=== PATIENT | male | born 1980 | race Caucasian/White ===

== ENCOUNTER 2017-06-19 05:25 | Inpatient (IN) | payer OTHER ==
--- NOTE | 2017-06-18 21:05 | PREOPHP ---
DATE OF ADMISSION: 06/19/2017 REASON FOR CONSULTATION: Consultation requested by Dr. Ti Mcmillan for urgent medical evaluation and clearance of a 36-year-old gentleman about to undergo surgery. Thank you, Dr. Mcmillan, for allowing us to participate in the care of this patient. HISTORY OF PRESENT ILLNESS: Greyson Goodman, a 36-year-old gentleman, injured his back approxima tely 6 weeks ago with a progressive history of worsening and radicular signs. Eventually he was samir gnosed with a large right paracentral herniation at L4-L5 and moderate radiculopathy of the S1 nerve with acute denervation on the nerve study, and is currently being admitted for urgent lumbar spine decompression. PAST MEDICAL HISTORY: In terms of his past medical history, his only surgical history was tonsil an d adenoid surgery. He has had no other major surgeries. No other minor surgeries. Also has not sunshine d any medical hospitalizations and has not broken any bones. ALLERGIES: THE PATIENT IS NOT ALLERGIC TO ANY MEDICATIONS. MEDICATIONS: He is only taking ibuprofen, which he stopped currently. GENERAL HEALTH: Is described as being good. SOCIAL HISTORY: The patient is , has 2 children. He does not smoke. Alcohol socially. Leblanc s drink coffee. Has no difficulty sleeping at night and is employed. FAMILY HISTORY: Mother at age 50 of cancer. Father is 64, has hypertension. Three siblings a re in good health. He knows of no family history of diabetes, heart or stroke. There was cancer an d hypertension. REVIEW OF SYSTEMS HEENT: Denies any significant headaches. CARDIORESPIRATORY: Denies any chest pain or shortness of breath. GASTROINTESTINAL: No melena or hematemesis. GENITOURINARY: No urgency, frequency. MUSCULOSKELETAL: Positive for back pain, severe, radiating down his right lower extremity. NEUROPSYCHIATRIC: Unremarkable. GENERAL HEALTH: As above. PHYSICAL EXAMINATION: VITAL SIGNS: The patient's blood pressure was 120/80, pulse was 80 and regular, respirations were 1 8, temperature 97.8, height 5 feet 6 inches, weight 180 pounds. GENERAL: The patient was noted to be a well-developed, well-nourished male, alert and cooperative, in no apparent acute distress, oriented to time, place, and person. HEAD, EARS, EYES, NOSE AND THROAT: Head was atraumatic. Eyes: Pupils were equal, reactive to ligh t and accommodation. Fundi were benign. Tympanic membranes were unremarkable. Nose was negative. Mouth was unremarkable. Fair oral hygiene was present. NECK: Supple without any rigidity. Trachea was midline. Thyroid was within normal limits. Neck v eins were flat. Carotid pulses were equal. No bruits were heard. BACK: Revealed spasm and tenderness in the lower back, otherwise unremarkable. CHEST: Symmetrical. BREASTS AND AXILLARY: Did not reveal any masses. LUNGS: Clear to percussion and auscultation. HEART: PMI is fifth intercostal space at the midclavicular line. Regular sinus rhythm was noted. No significant murmurs, rubs, or gallops being elicited. ABDOMEN: Soft, good bowel sounds were noted. No significant organomegaly, masses, or tenderness. GENITALIA: Normal male external genitalia. RECTAL AND PROSTATIC: Per PCP. EXTREMITIES: Not revealing clubbing, edema or cyanosis. Peripheral pulses were physiologic. NEUROLOGIC: Grossly intake with questionable diminished deep tendon reflexes on the right side. IMPRESSION: 1. Lumbosacral strain. 2. Large paracentral herniation, L4-L5. 3. Moderate S1 radiculopathy with acute denervation on nerve study. 4. Stable health. DISCUSSION: Review of laboratory and other data revealed the following: The patient's laboratory, including chemistries, including electrolytes, glucose, BUN, creatinine and liver function tests, w ere normal. CBC, UA, PT and PTT were normal as well, as was his CBC. His EKG was normal, as was hi s chest x-ray. DISCUSSION: Dr. Mcmillan, I see no contraindication in this patient undergoing current proposed cici varghese under desired form of anesthesia. I feel this surgery is somewhat urgent in view of how sympto matic the patient is. Thank you again, Dr. Mcmillan, for allowing us to participate in the care of this patient. We will follow him along with you during his stay at [facility]. Dictated By: SUZANNE ARCHULETA MD SS/JESSE Conf#: [id number] DID#: [id number] CC: TI MCMILLAN MD;*EndCC*
[~2017-06-19] VITALS: Ht 167.6 cm; Wt 78.8 kg
[2017-06-19] VITALS (37 sets, daily range): BP systolic 101–136; BP diastolic 58–82; PULSE 58–102; RESP 12–35; Ht 167.6 cm; Wt 78.8 kg
[2017-06-19] MEDS ORDERED: LACTATED RINGER'S 1,000 ML IV* SCH ×2 (06:00)
[2017-06-19] MEDS ORDERED: CEFAZOLIN 2 GM/50 ML (PMX) 50 ML IVPB ONE (06:00)
[2017-06-19] MEDS ORDERED: THROMBIN 5000 UNIT VIAL ONE (06:59)
[2017-06-19] MEDS ORDERED: BUPIVACAINE 0.25% (MPF) 30 ML INJ ONE (06:59)
[2017-06-19] MEDS ORDERED: GELATIN SIZE 100 SPONGE ONE (06:59)
[2017-06-19] MEDS ORDERED: POLYMYXIN/BACITRACIN 1L IRRIG ONE (06:59)
[2017-06-19] MEDS ORDERED: ONDANSETRON 4 MG INJ ONE ×2 (07:00→09:54)
[2017-06-19] MEDS ORDERED: LIDOCAINE 2% (SDV) 5 ML INJ ONE (07:00)
[2017-06-19] MEDS ORDERED: PROPOFOL 200 MG INJ ONE (07:00)
--- NOTE | 2017-06-19 07:04 | HPN ---
Date/Time of Note Date/Time of Note DATE: 06/19/17 TIME: 07:03 Interval H&P Admission Note Pt. seen H&P reviewed: No system changes NEETA ZACARIAS MD Jun 19, 2017 07:04
[2017-06-19] MEDS ORDERED: FENTAnyl 50 MCG/ML VIAL ONE (07:08)
[2017-06-19] MEDS ORDERED: HYDROmorphONE 2 MG/ML SYG ONE (08:00)
[2017-06-19] MEDS ORDERED: DEXAMETHASONE 4 MG/ML 1 ML INJ ONE (08:01)
[2017-06-19] MEDS ORDERED: LABETALOL HCL 20MG INJ ONE (08:10)
[2017-06-19] MEDS ORDERED: HYDROmorphONE (0.2 MG/ML) 10ML SYG IV ONE (09:54)
--- NOTE | 2017-06-19 09:59 | SIPON ---
Date/Time of Note Date/Time of Note DATE: 06/19/17 TIME: 09:57 Operative Report Preoperative Diagnosis Herniated disc L4-5 on the right with extruded fragments Postoperative Diagnosis Same Operation/Procedure Performed Right hemilaminotomy L4 Microdiscectomy L4-5 on the right Medial facetectomy and foraminotomy L4-5 on the right Cosmetic wound closure (4 cm) Lateral localizing lumbar radiographs (3) Intraoperative nerve monitoring Surgeon see signature line insurance assistant Zane Mcelroy MD Anesthesia: general Estimated blood loss: 10 - 50 ml's Transfusion Required none Specimen Disc material L4-5 on the right Grafts/Implants none Complications none NEETA ZACARIAS MD Jun 19, 2017 09:59
[2017-06-19] MEDS ORDERED: AL HYDROX/MG HYDROX/SIMETH 30 ML CUP PO PRN (10:00)
[2017-06-19] MEDS ORDERED: LABETALOL HCL 20MG INJ IV PRN (10:00)
[2017-06-19] MEDS ORDERED: HYDROCODONE/APAP (5/325) TAB PO PRN (10:00)
[2017-06-19] MEDS ORDERED: NALOXONE (0.4 MG/ML) INJ IV PRN (10:00)
[2017-06-19] MEDS ORDERED: TRIMETHOBENZAMIDE 100 MG/ML VIAL IM PRN (10:00)
[2017-06-19] MEDS ORDERED: DIPHENHYDRAMINE 50 MG CAP PO PRN (10:00)
[2017-06-19] MEDS ORDERED: NACL 0.9% 3 ML SYG IV SCH (10:00)
[2017-06-19] MEDS ORDERED: DIAZEPAM 5 MG TAB PO PRN (10:00)
[2017-06-19] MEDS ORDERED: METOCLOPRAMIDE 10 MG INJ IV PRN (10:00)
[2017-06-19] MEDS ORDERED: ACETAMINOPHEN 325 MG TAB PO PRN (10:00)
[2017-06-19] MEDS ORDERED: hydrALAzine 20 MG INJ IV PRN (10:00)
[2017-06-19] MEDS ORDERED: HYDROmorphONE (0.2 MG/ML) 10ML SYG IV PRN ×2 (10:00)
[2017-06-19] MEDS ORDERED: ONDANSETRON 4 MG INJ IV PRN ×2 (10:00)
[2017-06-19] MEDS ORDERED: HYDROmorphONE 0.2 MG/ML PCA IV SCH (10:00)
[2017-06-19] MEDS ORDERED: ZOLPIDEM 5 MG TAB PO PRN (10:00)
[2017-06-19] MEDS ORDERED: BETHANECHOL 25 MG TAB PO PRN (10:00)
[2017-06-19] MEDS ORDERED: KETOROLAC 30 MG INJ IV PRN (10:00)
[2017-06-19] MEDS ORDERED: EPHEDrine SULFATE 50 MG/5 ML SYG IV PRN (10:00)
[2017-06-19] MEDS ORDERED: CEPASTAT LOZENGE MT PRN (10:00)
[2017-06-19] MEDS ORDERED: OXYCODONE/ACETAMINOPHEN (5/325) TAB PO PRN ×2 (10:00)
[2017-06-19] MEDS ORDERED: PROCHLORPERAZINE 10 MG TAB PO PRN (10:00)
[2017-06-19] MEDS ORDERED: DIPHENHYDRAMINE 50 MG INJ IV PRN (10:00)
[2017-06-19] MEDS ORDERED: DIAZEPAM 5 MG/ML SYG IM PRN (10:00)
[2017-06-19] MEDS ORDERED: MEPERIDINE 25 MG INJ IV PRN (10:00)
[2017-06-19] MEDS ORDERED: FENTAnyl 50 MCG/ML VIAL IV PRN ×3 (10:00)
[2017-06-19] MEDS: HYDROmorphONE (0.2 MG/ML) 10ML SYG IV PRN ×3 (10:08→10:28)
--- NOTE | 2017-06-19 10:43 | OPR ---
DATE OF OPERATION: 06/19/2017 PREOPERATIVE DIAGNOSIS: Large right-sided herniation at L4-L5 with extruded disk fragments. POSTOPERATIVE DIAGNOSIS: Large right-sided herniation at L4-L5 with extruded disk fragments. OPERATION/PROCEDURES: 1. Right hemilaminotomy, L4. 2. Microdiskectomy, L4-L5 on the right. 3. Medial facetectomy and foraminotomy, L4-L5 on the right. 4. Cosmetic wound closure (4 cm). 5. Lateral localized lumbar radiographs (3). 6. Intraoperative nerve monitoring. SURGEON: Ti Mcmillan MD NET SQL DEVELOPER: Zane Mcelroy MD ANESTHESIA: General endotracheal. ANESTHESIOLOGIST: Dr. Antunez ESTIMATED BLOOD LOSS: 15 mL, none replaced. DRAINS: Two medium Hemovac drains employed. COMPLICATIONS: None. PERTINENT HISTORY AND PHYSICAL: This is a 36-year-old male with severe back and right leg pain and inability to stand, walk or sit for more than 2 minutes at a time. He has received appropriate conservative care including an epidural block which failed to give him lasting benefit. He has undergone MRI of the lumbar spine, which demonstrated a large right-sided herniation of the L4-L5 disks and preoperative electrodiagnostic testing revealed a right S1 radiculopathy. Treatment options were discussed with the patient, who elected to proceed with surgery. OPERATIVE FINDINGS AT SURGERY: A large right-sided disk extrusion at L4-L5 was confirmed. The baseline nerve testing was incomplete, but the nerve testing at the completion of the procedure was normal. OPERATIVE PROCEDURE: With the patient in supine position after satisfactory induction of general endotracheal anesthesia by Dr. Antunez, the patient was turned to the prone kneeling position on the Kingsley frame. All pressure points were carefully padded. The back was prepped and draped in usual sterile fashion. Athrombic pumps were applied to the legs below the knees to prevent venous stasis during and after the procedure. Two spinal needles were placed next to what was felt to be L4 and L5 spinous processes, lateral roentgenogram was taken which confirmed anatomic localization. A 4 cm incision was then carried out midline over the spinous process of L4 through skin and subcutaneous tissue to deep fascia after skin was infiltrated with 0.25% Marcaine without epinephrine for postoperative analgesia. Superficial retractors were placed and hemostasis secured with electrocautery. Throughout the procedure, copious amounts of antibacterial irrigating solution were used to periodically irrigate the wound. The fascia was incised in midline with a hot knife and unilateral subperiosteal dissection carried out at L4 on the right. Deep retractors were placed and deep hemostasis secured with electrocautery. A second intraoperative radiograph was taken with deep retractor at the L4-L5 interspace, and this was confirmed with second x-ray. 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 A right hemilaminotomy at L4 was then carried out using Leksell rongeur, Kerrison punches and curettes. Ligamentum flavum was incised with sharp dissection. The operating microscope was moved into place. A medial facetectomy and foraminotomy was accomplished using small hand osteotome, mallet, Kerrison punches and curettes. The L5 root was then mobilized medially and protected with Pennie nerve retractor using microdissection technique. This revealed a large extruded disk fragments of the L4-5 disk. A large spring action pituitary rongeur was used to remove the extruded disk fragments and a 15 blade knife was then used to create an annular opening to facilitate evacuation of additional disk material from the L4-L5 disk space. The straight and angulated pituitary rongeurs were used to harvest additional disk material. A thorough search of the floor of the canal was made with an arthroscopic probe. No additional fragments were encountered. The epidural hemostasis was secured with bipolar electrocautery on low setting. Anesthesiologist was asked to perform a Valsalva maneuver at 40 mmHg and no spinal fluid leakage was noted. The wound was then closed in layers over 2 medium Hemovac drains, one below the fascia and one above the fascia, using #1 Stratafix sutures in deep paralumbar musculature and deep fascia of back, 2-0 Stratafix sutures in subcutaneous subcu tissue, and a 4-0 Vicryl subcuticular cosmetic closing suture on the skin. Dermabond and sterile compressive dressings were applied. Patient having tolerated procedure well, was then turned to supine position onto his bed and extubated Dr. Antunez. He was transported to recovery room in satisfactory condition. At the completion of the surgery, sponge, instrument, and needle counts were all correct. NEED FOR GARBAGE WORKER: During this spinal surgical procedure, my assistant finance director was used to retract and protect the spinal nerves and dural sac. My assistant finance director also employed the suction catheters to evacuate blood from the surgical field to improve visualization of the neural structures. The assistant finance director was medically necessary to facilitate the completion of the surgery in a safe and expeditious manner. State of [place] regulations, as well as hospital bylaws, preclude the use of non-licensed health care personnel such as operating room technicians, to perform these functions. Throughout the procedure, neural monitoring was carried out including EMG, SSEP and MEP monitoring of the L3, L4, L5 and S1 nerve roots bilaterally along with spinal cord potentials. These were interpreted by a neurologist employed by [employer]. Dictated By: TI MCMILLAN MD TM/NTS Conf#: [id number] DID#: [id number] CC: SUZANNE ARCHULETA MD;*EndCC* MTDD
--- NOTE | 2017-06-19 11:06 | RADRPT ---
PROCEDURE: Intraoperative fluoroscopy. CLINICAL INDICATION: Intraoperative fluoroscopy. TECHNIQUE: Intraoperative fluoroscopy of the lumbar spine was performed. COMPARISON: None. FINDINGS: Intraoperative fluoroscopy of the lumbar spine was performed. Fluoroscopy time: Please refer to operative report. Images: 2. IMPRESSION: As above. RPTAT: PP .Hung Santa MD, Date Time Electronically viewed and signed by .Hung Santa MD, on 06/19/2017 11:06 .F/
--- NOTE | 2017-06-19 11:08 | RADRPT ---
PROCEDURE: XR lumbar spine CLINICAL INDICATION: Lumbar microdiskectomy L4-5 TECHNIQUE: Single cross-table lateral lumbar spine radiograph COMPARISON: None available FINDINGS: For purposes of dictation, lowermost mobile vertebral segment is labeled L5. [place] present posteri basim at the L4, L4-5 levels. Mild disc space narrowing with anterior osteophytes seen at L5-S1. IMPRESSION: Posterior needle localization as described. Lower lumbar spondylosis. RPTAT: EE .Adrian Parker MD, Date Time Electronically viewed and signed by .Adrian Parker MD, MD on 06/19/2017 11:08 .O/
--- NOTE | 2017-06-19 12:23 | CONS ---
Date/Time of Note Date/Time of Note DATE: 06/19/17 TIME: :17 Consult Date/Type/Reason Admit Date/Time Jun 19, 2017 at 05:25 Initial Consult Date 06/18/2017 Type of Consultation: internal medicine Reason for Consultation pre=operative medical evaluation and clearance Ordering Provider: NEETA ZACARIAS MD Subjective post-op in recovery room alert,slight back pain stable Objective Vital Signs Date Time Temp Pulse Resp B/P Pulse Ox O2 Delivery O2 Flow Rate FiO2 06/19/17 10:42 66 35 111/71 99 06/19/17 10:42 Room Air 06/19/17 09:44 97.8 Exam vss heent negative lungs clear heart regular rhythm abdomen soft neuro alert Results/Medications Medications Current Medications Lactated Ringer's 1,000 ml @ 20 mls/hr Q24H IV* ; Start 06/19/17 at 06:00; Stop 06/21/17 at 07:59 Lactated Ringer's 1,000 ml @ 20 mls/hr Q24H IV* ; Start 06/19/17 at 06:00; Stop 06/21/17 at 07:59 Dextrose/Sodium Chloride (D5-1/2ns) 1,000 ml @ 100 mls/hr Q10H IV ; Start at 09:53 Acetaminophen/ Hydrocodone Bitart ([place] (5/325)) 1 tab Q4H PRN PO PAIN LEVEL 1 -5; Start 06/19/17 at 10:00 Acetaminophen/ Hydrocodone Bitart 2 tab 2 tab Q4H PRN PO PAIN LEVEL 6-10; Start 06/19/17 at 10:00 Cefazolin Sodium (Ancef 1 Gm/50 ml (Pmx)) 50 ml @ 100 mls/hr Q6 IVPB ; Start 06/19/17 at 12:00; Stop 06/20/17 at 06:29 Zolpidem Tartrate (Ambien) 5 mg HS PRN PO INSOMNIA; Start 06/19/17 at 10:00 Prochlorperazine (Compazine) 10 mg Q4H PRN PO NAUSEA AND/OR VOMITING; Start at 10:00 Trimethobenzamide HCl (Tigan) 200 mg Q4H PRN IM NAUSEA AND/OR VOMITING; Start 06/19/17 at 10:00 Ondansetron HCl (Zofran Inj) 4 mg Q6H PRN IV NAUSEA AND/OR VOMITING; Start at 10:00 Al Hydrox/Mg Hydrox/Simethicone (Mag-Al Plus) 15 ml Q4H PRN PO CONSTIPATION; Start 06/19/17 at 10:00 Docusate Sodium (Colace) 100 mg BID PO ; Start 06/20/17 at 09:00 Acetaminophen (Tylenol Tab) 650 mg Q4H PRN PO TEMP GREATER THAN 101F OR ARZOLA; Start 06/19/17 at 10:00 Ascorbic Acid (Vitamin C) 1,000 mg BID PO ; Start 06/20/17 at 09:00 Ferrous Sulfate (Ferrous Sulfate (Ec)) 325 mg TID PO ; Start 06/20/17 at 09:00 Ranitidine HCl (Zantac) 150 mg BID PO ; Start 06/19/17 at 21:00 Diazepam (Valium) 5 mg Q4H PRN PO MUSCLE SPASMS; Start 06/19/17 at 10:00 Diazepam (Valium) 5 mg Q4H PRN IM MUSCLE SPASMS; Start 06/19/17 at 10:00 Phenol (Cepastat Lozenge) 1 lozenge PRN PRN MT SORE THROAT; Start 06/19/17 at 10:00 Bethanechol Chloride (Urecholine) 25 mg PRN PRN PO UNABLE TO VOID; Start 06/19 at 10:00 Diphenhydramine HCl (Benadryl) 50 mg Q6H PRN PO PRURITUS; Start 06/19/17 at 10 :00 Hydromorphone HCl (Dilaudid SPECIALTY THERAPIST) Q4PCA IV Last administered on 06/19/17t 10: 23; Admin Dose 6 MG; Start 06/19/17 at 10:00 Naloxone HCl (Narcan) 0.2 mg Q2M PRN IV RR 8 BREATHS/MIN OR LESS; Start at 10:00 Assessment/Plan Chief Complaint/Hosp Course post-op lumbar spine surgery complaining of some back pain alert. Problems: Additional Assessment/Plan plan per will follow with you thank you SUZANNE Sullivan MD Jun 19, 2017 12:23
[2017-06-19] MEDS: CEFAZOLIN 1 GM/50 ML (PMX) 50 ML IVPB SCH ×3 (14:07→23:34)
[2017-06-19] MEDS: DEXTROSE 5%-0.45% NACL 1,000 ML IV SCH ×2 (14:08→21:12)
[2017-06-19] MEDS: RANITIDINE 150 MG TAB PO SCH (21:12)
[2017-06-20] MEDS: CEFAZOLIN 1 GM/50 ML (PMX) 50 ML IVPB SCH (05:14)
[2017-06-20] MEDS: DEXTROSE 5%-0.45% NACL 1,000 ML IV SCH (05:15)
[2017-06-20 05:28] LABS: HEMATOCRIT 41.6 % (42.0-52.0); HEMOGLOBIN 14.3 g/dl (14.0-18.0)
[2017-06-20 05:45] LABS: CALCIUM 9.2 mg/dl (8.4-10.2); CREATININE 0.81 mg/dl (0.61-1.24); POTASSIUM 4.6 mmol/L (3.5-5.1)
[2017-06-20 07:33] VITALS: BP 147/73; RESP 19
[2017-06-20] MEDS ORDERED: BETHANECHOL 25 MG TAB PO PRN (08:00)
[2017-06-20] MEDS: RANITIDINE 150 MG TAB PO SCH (08:43)
--- NOTE | 2017-06-20 08:58 | PN ---
Date/Time of Note Date/Time of Note DATE: 06/20/17 TIME: 08:49 Assessment/Plan Lines/Catheters IV Catheter Type (from Nrs): Peripheral IV Lopez in Place (from Nrsg): No Subjective 24 Hr Interval Summary Patient is postop day #1 following a microdiscectomy at L4-5 on the right. He is resting comfortably in bed. Neurovascular structures are intact distally. A.m. lab work is unremarkable. His Hemovac had minimal drainage and was discontinued. His wound is clean and dry and was redressed. He has done well with physical therapy thus far and I anticipate he will be cleared for discharge later today. He has been given strict discharge precautions and instructions as well as follow-up arrangements. Exam/Review of Systems Vital Signs Vitals Vital Signs Date Time Temp Pulse Resp B/P Pulse Ox O2 Delivery O2 Flow Rate FiO2 06/20/17 07:33 98.0 73 19 147/73 98 06/19/17 18:45 Nasal Cannula 2.0 Intake and Output 06/19/17 06/19/17 06/20/17 14:59 22:59 06:59 Intake Total 950 ml 1190 ml 2190 ml Output Total 530 ml 635 ml 1100 ml Balance 420 ml 555 ml 1090 ml Results Result Diagram: 06/20/17 0433 06/20/17 0433 NEETA ZACARIAS MD Jun 20, 2017 08:58
[2017-06-20] MEDS ORDERED: FERROUS SULFATE (EC) 325 MG TAB PO SCH (09:00)
[2017-06-20] MEDS ORDERED: ASCORBIC ACID 500 MG TAB PO SCH (09:00)
[2017-06-20] MEDS ORDERED: DOCUSATE SODIUM 100 MG CAP PO SCH (09:00)
[2017-06-20] MEDS: HYDROCODONE/APAP (5/325) TAB PO PRN ×2 (09:11→12:09)
--- NOTE | 2017-06-20 10:23 | CONS ---
Date/Time of Note Date/Time of Note DATE: 06/20/17 TIME: 10:19 Consult Date/Type/Reason Admit Date/Time Jun 19, 2017 at 05:25 Initial Consult Date 06/18/2017 Type of Consultation: internal medicine Reason for Consultation medical management and f/u Ordering Provider: NEETA ZACARIAS MD Subjective no complaints pain and radiculopathy much improved looking forward to going home Objective Vital Signs Date Time Temp Pulse Resp B/P Pulse Ox O2 Delivery O2 Flow Rate FiO2 06/20/17 08:00 18 06/20/17 07:33 98.0 73 147/73 98 06/19/17 18:45 Nasal Cannula 2.0 Intake and Output 06/19/17 06/19/17 06/20/17 15:00 23:00 07:00 Intake Total 950 ml 1190 ml 2190 ml Output Total 530 ml 635 ml 1100 ml Balance 420 ml 555 ml 1090 ml Exam vss heent negative lungs clear heatr regular rhytm a bdomen soft Results/Medications Result Diagram: 06/20/17 0433 06/20/17 0433 Results 24 hrs Laboratory Tests Test 06/20/17 04:33 Hemoglobin 14.3 Hematocrit 41.6 L Sodium Level 142 Potassium Level 4.6 Chloride Level 103 Carbon Dioxide Level 31 Anion Gap 13 Blood Urea Nitrogen 13 Creatinine 0.81 Glucose Level 111 Calcium Level 9.2 Medications Current Medications Lactated Ringer's 1,000 ml @ 20 mls/hr Q24H IV* ; Start 06/19/17 at 06:00; Stop 06/21/17 at 07:59 Lactated Ringer's 1,000 ml @ 20 mls/hr Q24H IV* ; Start 06/19/17 at 06:00; Stop 06/21/17 at 07:59 Dextrose/Sodium Chloride (D5-1/2ns) 1,000 ml @ 100 mls/hr Q10H IV Last administered on 06/20/17 05:15; Admin Dose 100 MLS/HR; Start 06/19/17 at 09: 53 Acetaminophen/ Hydrocodone Bitart ([place] (5/325)) 1 tab Q4H PRN PO PAIN LEVEL 1 -5 Last administered on 06/20/17 09:11; Admin Dose 1 TAB; Start 06/19/17 at 10:00 Acetaminophen/ Hydrocodone Bitart ([place] (5/325)) 2 tab Q4H PRN PO PAIN LEVEL 6 -10; Start 06/19/17 at 10:00 Zolpidem Tartrate (Ambien) 5 mg HS PRN PO INSOMNIA; Start 06/19/17 at 10:00 Prochlorperazine (Compazine) 10 mg Q4H PRN PO NAUSEA AND/OR VOMITING; Start at 10:00 Trimethobenzamide HCl (Tigan) 200 mg Q4H PRN IM NAUSEA AND/OR VOMITING; Start 06/19/17 at 10:00 Ondansetron HCl (Zofran Inj) 4 mg Q6H PRN IV NAUSEA AND/OR VOMITING; Start at 10:00 Al Hydrox/Mg Hydrox/Simethicone (Mag-Al Plus) 15 ml Q4H PRN PO CONSTIPATION; Start 06/19/17 at 10:00 Docusate Sodium (Colace) 100 mg BID PO Last administered on 06/20/17 08:42; Admin Dose 100 MG; Start 06/20/17 at 09:00 Acetaminophen (Tylenol Tab) 650 mg Q4H PRN PO TEMP GREATER THAN 101F OR ARZOLA; Start 06/19/17 at 10:00 Ascorbic Acid (Vitamin C) 1,000 mg BID PO Last administered on 06/20/17 08:43 ; Admin Dose 1,000 MG; Start 06/20/17 at 09:00 Ferrous Sulfate (Ferrous Sulfate (Ec)) 325 mg TID PO Last administered on 06/20 08:42; Admin Dose 325 MG; Start 06/20/17 at 09:00 Ranitidine HCl (Zantac) 150 mg BID PO Last administered on 06/20/17 08:43; Admin Dose 150 MG; Start 06/19/17 at 21:00 Diazepam (Valium) 5 mg Q4H PRN PO MUSCLE SPASMS; Start 06/19/17 at 10:00 Diazepam (Valium) 5 mg Q4H PRN IM MUSCLE SPASMS; Start 06/19/17 at 10:00 Phenol (Cepastat Lozenge) 1 lozenge PRN PRN MT SORE THROAT Last administered on 06/19/17 17:49; Admin Dose 1 LOZENGE; Start 11/22/17 at 10:00 Diphenhydramine HCl (Benadryl) 50 mg Q6H PRN PO PRURITUS; Start 06/19/17 at 10 :00 Hydromorphone HCl (Dilaudid WAITER/WAITRESS ROOM SERVICE) Q4PCA IV Last administered on 06/19/17t 10: 23; Admin Dose 6 MG; Start 06/19/17 at 10:00 Naloxone HCl (Narcan) 0.2 mg Q2M PRN IV RR 8 BREATHS/MIN OR LESS; Start at 10:00 Bethanechol Chloride (Urecholine) 25 mg PRN PRN PO UNABLE TO VOID; Start 06/20 at 08:00 Assessment/Plan Chief Complaint/Hosp Course post-op lumbar spine surgery complaining of some back pain alert. Problems: Additional Assessment/Plan patient medically stable management per dr. zacarias thank you SUZANNE Sullivan MD Jun 20, 2017 10:23
== END 2017-06-20 12:15 | disposition home or self-care (01) | DRG 520 ==
LOC: REC 05:25 → MS1 15:40
PROVIDERS: ADMIT Orthopaedic Surgery; ATTEND Orthopaedic Surgery
PROC: 4A11X4G Monitoring of Peripheral Nervous Electrical Activity, Intraoperative, External Approach (ICD-10-PCS; 2017-06-19)
PROC: 0SB20ZZ Excision of Lumbar Vertebral Disc, Open Approach (ICD-10-PCS; principal; 2017-06-19 07:30)
DX: M51.16 Intervertebral disc disorders with radiculopathy, lumbar region (principal); S39.012A Strain of muscle, fascia and tendon of lower back, initial encounter; X58.XXXA Exposure to other specified factors, initial encounter; Z87.891 Personal history of nicotine dependence
CPT/HCPCS: 72020; 80048; 85014; 85018; 86850; 86900; 86901; 86920; 97116; 97163; 97530; J0690; J1100; J1170; J2405; J3010; J7042; J7120